=== PATIENT | male | born 1970 | race Caucasian/White ===

== ENCOUNTER 2022-04-06 12:05 | Day surgery (SDC) | payer OTHER ==
[2022-04-06] MEDS ORDERED: LIDOCAINE HCL 2% 100 MG/5 ML IJ ONE (12:06)
[2022-04-06] MEDS ORDERED: Pepcid 20 MG VIAL IV ONE (13:05)
[2022-04-06] MEDS ORDERED: Reglan 10 MG/2 ML ONE (13:06)
[2022-04-06] MEDS ORDERED: DIPRIVAN 200 MG/20 ML IV ONE (13:56)
[2022-04-06] MEDS ORDERED: Lactated Ringers 1,000 ML IV ONE (14:10)
--- NOTE | 2022-04-06 16:21 | XRAY ---
Indication: Left C2-C4 MBB. Intraoperative fluoroscopy provided for 13 seconds. 3 digital spot image submitted for interpretation demonstrates posterior needle tips projecting over the expected left C2-C4 nerve roots. Correlate with intraoperative findings/report.
--- NOTE | 2022-04-06 16:30 | XRAY ---
13 seconds of fluoroscopy was used in surgery for a left C2-C4 MBB.
== END 2022-04-06 14:25 | disposition home or self-care (01) ==
LOC: SDC-PAIN 12:05
PROVIDERS: ATTEND Psychiatry & Neurology Pain Medicine
DX: M47.812 Spondylosis without myelopathy or radiculopathy, cervical region (principal); Z79.899 Other long term (current) drug therapy
CPT/HCPCS: 64490; 64491; 72040; 77002; J2704

== ENCOUNTER 2022-04-27 12:43 | Day surgery (SDC) | payer OTHER ==
[2022-04-27] MEDS ORDERED: BUPIVACAINE 0.5% VIAL IJ ONE (12:44)
[2022-04-27] MEDS ORDERED: Lactated Ringers 1,000 ML IV ONE (12:44)
[2022-04-27] MEDS ORDERED: DIPRIVAN 200 MG/20 ML IV ONE (14:41)
--- NOTE | 2022-04-27 16:29 | XRAY ---
Indication: Left C2-C4 MBB. Intraoperative fluoroscopy provided for 16 seconds. 2 digital spot image submitted for interpretation demonstrates posterior needle tips projecting over the expected left C2-C4 nerve roots. Correlate with intraoperative findings/report.
--- NOTE | 2022-04-27 16:41 | XRAY ---
16 seconds fluoroscopy time in surgery for left C2-C4 MBB.
== END 2022-04-27 15:15 | disposition home or self-care (01) ==
LOC: SDC-PAIN 12:43
PROVIDERS: ATTEND Psychiatry & Neurology Pain Medicine
DX: M47.812 Spondylosis without myelopathy or radiculopathy, cervical region (principal); Z79.899 Other long term (current) drug therapy
CPT/HCPCS: 64490; 64491; 72040; 77002; J2704

== ENCOUNTER 2022-06-01 13:54 | Day surgery (SDC) | payer OTHER ==
[2022-06-01] MEDS ORDERED: LIDOCAINE HCL 2% 100 MG/5 ML IJ ONE (13:55)
[2022-06-01] MEDS ORDERED: Lactated Ringers 1,000 ML IV ONE (15:33)
[2022-06-01] MEDS ORDERED: DIPRIVAN 200 MG/20 ML IV ONE (15:38)
--- NOTE | 2022-06-01 16:29 | XRAY ---
Indication: Right C2-C4 MBB. Intraoperative fluoroscopy provided for 10 seconds. 2 digital spot image submitted for interpretation demonstrates posterior needle tips projecting over the expected right C2-C4 nerve roots. Correlate with intraoperative findings/report.
--- NOTE | 2022-06-02 08:42 | XRAY ---
10 seconds of fluoroscopy was used in surgery for a right C2-C4 MBB.
== END 2022-06-01 16:10 | disposition home or self-care (01) ==
LOC: SDC-PAIN 13:54
PROVIDERS: ATTEND Psychiatry & Neurology Pain Medicine
DX: M47.812 Spondylosis without myelopathy or radiculopathy, cervical region (principal); Z79.899 Other long term (current) drug therapy
CPT/HCPCS: 64490; 64491; 72040; 77002; J2704

== ENCOUNTER 2022-07-20 13:39 | Day surgery (SDC) | payer OTHER ==
[2022-07-20] MEDS ORDERED: BUPIVACAINE 0.5% VIAL IJ ONE (13:40)
[2022-07-20] MEDS ORDERED: DIPRIVAN 200 MG/20 ML IV ONE (14:50)
--- NOTE | 2022-07-20 18:14 | XRAY ---
Indication: Right C2-C4 MBB. Intraoperative fluoroscopy provided for 14 seconds. 2 digital spot image submitted for interpretation demonstrates posterior needle tips projecting over the expected right C2-C4 nerve roots. Correlate with intraoperative findings/report.
--- NOTE | 2022-07-21 17:15 | XRAY ---
14 seconds of fluoroscopy was used in surgery for a right C2-C4 MBB.
== END 2022-07-20 15:20 | disposition home or self-care (01) ==
LOC: SDC-PAIN 13:39
PROVIDERS: ATTEND Psychiatry & Neurology Pain Medicine
DX: M47.812 Spondylosis without myelopathy or radiculopathy, cervical region (principal); Z79.899 Other long term (current) drug therapy
CPT/HCPCS: 64490; 64491; 72040; 77002; J2704

== ENCOUNTER 2022-08-31 14:07 | Day surgery (SDC) | payer OTHER ==
[2022-08-31] MEDS ORDERED: BUPIVACAINE 0.5% VIAL IJ ONE (14:08)
[2022-08-31] MEDS ORDERED: LIDOCAINE HCL 1% 50 MG/5 ML VL PF IJ ONE (14:08)
[2022-08-31] MEDS ORDERED: Decadron 4 MG INJ IV ONE (14:08)
[2022-08-31] MEDS ORDERED: DIPRIVAN 200 MG/20 ML IV ONE ×2 (15:45→16:02)
[2022-08-31] MEDS ORDERED: Lactated Ringers 1,000 ML IV ONE (16:21)
--- NOTE | 2022-08-31 16:27 | XRAY ---
27 seconds of fluoroscopy was used in surgery for a left C2-C4 RFA.
--- NOTE | 2022-08-31 16:31 | XRAY ---
Indication: Left C2-C4 RFA. Intraoperative fluoroscopy provided for 27 seconds. 3 digital spot image submitted for interpretation demonstrates posterior needle tips projecting over the expected left C2-C4 nerve roots. Correlate with intraoperative findings/report.
== END 2022-08-31 16:20 | disposition home or self-care (01) ==
LOC: SDC-PAIN 14:07
PROVIDERS: ATTEND Psychiatry & Neurology Pain Medicine
DX: M47.812 Spondylosis without myelopathy or radiculopathy, cervical region (principal); Z79.899 Other long term (current) drug therapy
CPT/HCPCS: 64633; 64634; 72040; 77002; J1100; J2001; J2704

== ENCOUNTER 2022-09-07 13:57 | Day surgery (SDC) | payer OTHER ==
[2022-09-07] MEDS ORDERED: LIDOCAINE HCL 1% 50 MG/5 ML VL PF IJ ONE (13:58)
[2022-09-07] MEDS ORDERED: BUPIVACAINE 0.5% VIAL IJ ONE (13:58)
[2022-09-07] MEDS ORDERED: Decadron 4 MG INJ IV ONE (13:58)
[2022-09-07] MEDS ORDERED: DIPRIVAN 200 MG/20 ML IV ONE ×2 (16:23→16:39)
[2022-09-07] MEDS ORDERED: Lactated Ringers 1,000 ML IV ONE (17:29)
--- NOTE | 2022-09-07 20:55 | XRAY ---
Indication: Right C2-C4 RFA. Intraoperative fluoroscopy provided for 35 seconds. 4 digital spot images submitted for interpretation demonstrates posterior needle tips projecting over the expected right C2-C4 nerve roots. Correlate with intraoperative findings/report.
--- NOTE | 2022-09-08 09:04 | XRAY ---
35 seconds of fluoroscopy was used in surgery for a right C2-C4 RFA.
== END 2022-09-07 17:00 | disposition home or self-care (01) ==
LOC: SDC-PAIN 13:57
PROVIDERS: ATTEND Psychiatry & Neurology Pain Medicine
DX: M47.812 Spondylosis without myelopathy or radiculopathy, cervical region (principal); Z79.899 Other long term (current) drug therapy
CPT/HCPCS: 64633; 64634; 72040; 77002; J1100; J2001; J2704

== ENCOUNTER 2022-11-09 12:53 | Day surgery (SDC) | payer OTHER ==
[~2022-11-09 12:53] MED LIST: DIPRIVAN 200 MG/20 ML IV ONE
[2022-11-09] MEDS ORDERED: BUPIVACAINE 0.5% VIAL IJ ONE (12:54)
[2022-11-09] MEDS ORDERED: Depo-Medrol 40 MG/ML IM ONE (12:54)
[2022-11-09] MEDS ORDERED: Lactated Ringers 1,000 ML IV ONE (14:35)
[2022-11-09] MEDS ORDERED: DIPRIVAN 200 MG/20 ML IV ONE (14:42)
--- NOTE | 2022-11-09 16:59 | XRAY ---
Indication: Right shoulder and subacromial bursa injection. Intraoperative fluoroscopy provided for 18 seconds. 3 digital spot image submitted for interpretation demonstrates needle tip projecting over right glenohumeral joint superiorly. Second needle tip subacromial. Small amount of contrast injected for both needle tip placement. Correlate with intraoperative findings/report.
--- NOTE | 2022-11-09 17:34 | XRAY ---
18 seconds of fluoroscopy was used in surgery for a right intra-articular shoulder and subacromial bursa injection.
== END 2022-11-09 15:10 | disposition home or self-care (01) ==
LOC: SDC-PAIN 12:53
PROVIDERS: ATTEND Psychiatry & Neurology Pain Medicine
DX: M19.011 Primary osteoarthritis, right shoulder (principal); M75.51 Bursitis of right shoulder; Z79.899 Other long term (current) drug therapy
CPT/HCPCS: 20610; 73030; 77002; 93005; J1030; J2704; Q9966